=== PATIENT | female | born 1970 | race Caucasian/White ===

== ENCOUNTER → 2016-11-26 | Outpatient (CLI) | payer BC ==
[~2016-11-26] MED LIST: CETI10 PO; FLUT50SP EACH NARE; GREEN VIBRANCE PO; NORE1TAB43 PO; PHENO60 PO; [UNRECOGNIZED DRUG - CODE] PO; [UNRECOGNIZED DRUG - OTHER] PO
[2016-11-26 14:03] LABS: AUTOMATED NEUTROPHIL # 2.9 TH/MM3 (1.8-7.7); BASOPHIL # 0.1 TH/MM3 (0-0.2); EOSINOPHIL % 0.8 % (0.0-4.0); HEMATOCRIT 44.3 % (35.0-46.0); HEMO FLAGS DIFF FINAL; LYMPH % 32.1 % (9.0-44.0); LYMPHOCYTE # 1.6 TH/MM3 (1.0-4.8); MEAN CORPUSCULAR HEMOGLOBIN 29.1 PG (27.0-34.0); MEAN CORPUSCULAR HGB CONC 33.1 % (32.0-36.0); MONO % 8.2 % (0.0-8.0); NEUT % 57.9 % (16.0-70.0); PLATELET COUNT 233 TH/MM3 (150-450); RED BLOOD COUNT 5.04 MIL/MM3 (4.00-5.30); RED CELL DISTRIBUTION WIDTH 13.6 % (11.6-17.2)
[2016-11-26 14:23] LABS: BACTERIA, URINE OCC /hpf; BLOOD, URINE NEG (NEG); COMMENT (UR) CULT NOT INDICATED; CULTURE IF INDICATED CULT NOT INDICATED; GLUCOSE,URINE NEG (NEG); KETONE, URINE NEG (NEG); MUCUS URINE FEW /lpf (OCC); NITRITE,URINE NEG (NEG); PH, URINE 6.5 (5.0-8.5); SQUAMOUS EPITHELIAL CELL URINE 6 /hpf (0-5); TRANSITIONAL EPI CELLS, URINE <1 /hpf; URINE COLOR LIGHT-YELLOW (YELLW/STRAW)
[2016-11-26 14:28] LABS: BETA HCG QUANT LESS THAN 1 MIU/ML (0-5)
--- NOTE | 2016-11-27 23:35 | EKG ---
Date Performed: 11/26/2016 Time Performed: 13:37:07 PTAGE: 45 years EKG: Sinus rhythm NORMAL ECG NO PREVIOUS TRACING DOCTOR: Jose Antonio Perez Interpretating Date/Time 11/27/2016 23:32:34
== END ==
LOC: CPRE 13:14
PROVIDERS: ATTEND Obstetrics & Gynecology
DX: Z01.812 Encounter for preprocedural laboratory examination (principal); D25.9 Leiomyoma of uterus, unspecified; R87.619 Unspecified abnormal cytological findings in specimens from cervix uteri
CPT/HCPCS: 36415; 81001; 84702; 85025; 93005

== ENCOUNTER → 2016-12-02 | Day surgery (SDC) | payer BC ==
--- NOTE | 2016-12-01 21:45 | MH ---
cc: JOSE MO. DATE OF ADMISSION: 12/02/2016 ADMITTING DIAGNOSIS: Menorrhagia with fibroids and atypical glandular cells on Pap smear. HISTORY OF PRESENT ILLNESS 45-year-old single white female, para 3-0-0-3, returned for followup Pap on 11/06/2016 which returned with LESLEY-1 atypical glandular cells and positive high-risk HPV. Colposcopy was performed on 11/18/2016 which revealed benign ECC. Vaginal ultrasound 11/23/2016 showed a uterus about 10.9 cm multiple fibroids, and area of shadowing in the midportion of the endometrium. Ovaries were normal. She is now admitted for hysteroscopy and D&C. PAST MEDICAL HISTORY Sinus surgery. History of seizure. MEDICATIONS: Phenobarbital. Vitamins. ALLERGIES: NONE. TRANSFUSIONS None. OBSTETRICAL HISTORY Three vaginal deliveries. SOCIAL HISTORY She is single. Alcohol, tobacco and drugs are none. PHYSICAL EXAMINATION: Reveals a well-nourished, well-developed white female. Vital signs stable. HEENT: Exam is normal. CHEST: Clear. HEART: Regular rate. BREASTS: The breasts are symmetrical. ABDOMEN: Benign. PELVIC: Normal external genitalia and BUS. Vagina is normal. Cervix normal. Uterus is about 12 weeks' size. Adnexa nonpalpable. ASSESSMENT: As above. PLAN: She is now admitted for hysteroscopy, D&C. While in the office, I explained the procedures, the risks, benefits, complications, and possible need for surgery depending on the findings. The patient would like to proceed. MD SULEMA Hernandez/SULY /9:11 PM /9:26 PM
[~2016-12-02] VITALS: Ht 165.1 cm; Wt 62.0 kg
[~2016-12-02] MED LIST changes: +ACETAMINOPHEN 1000 MG/100 ML VIAL IV SCH; +DO NOT ADM ANY ANTICOAGULANT DRUGS XX PRN; +FAMOTIDINE 20 MG/2 ML VIAL ONE; +INSULIN HUMAN REGULAR 1,000 UNITS/10 ML VIAL SQ PRN; +KETOROLAC TROMETHAMINE 60 MG/2 ML (IM) VIAL IM ONE; +LACTATED RINGER'S 1000 ML IV SCH; +METOCLOPRAMIDE HCL 10 MG/2 ML VIAL IV PRN; +METOPROLOL TARTRATE 25 MG TAB PO PRN; +MIDAZOLAM HCL 2 MG/2 ML VIAL ONE; +ONDANSETRON HCL 4 MG/2 ML VIAL IV PUSH ONE; +PROPOFOL 200 MG/20 ML AMP IV ONE; +SODIUM CHLORID 0.9% 500 ML IV SCH; +ceFAZolin 1,000 MG/NS 100 ML IV SCH; +oxyCODONE/ACETAMINOPHEN 5 MG/325 MG TAB PO PRN
[2016-12-02 13:22] VITALS: BP 113/67; PULSE 65; RESP 20; TEMP 98.1; O2SAT 100
[2016-12-02 16:30] VITALS: BP 112/61; PULSE 65; RESP 16; TEMP 97.9; O2SAT 100
--- NOTE | 2016-12-03 13:39 | MP ---
cc: JOSE MO M.D. DATE OF SURGERY 12/02/2016 PREOPERATIVE DIAGNOSIS Menorrhagia, dysmenorrhea with fibroids, atypical squamous and atypical glandular cells on Pap smear. POSTOPERATIVE DIAGNOSIS Menorrhagia, dysmenorrhea with fibroids, atypical squamous and atypical glandular cells on Pap smear, pathology pending. PROCEDURE Cervical biopsies, hysteroscopy, D&C. ANESTHESIA General ET SURGEON Jose Mo MD ESTIMATED BLOOD LOSS About 15 cc FLUIDS Half liter of crystalloid. OBJECTIVE FINDINGS Following the induction of adequate general endotracheal anesthesia, the patient was prepped and draped supine on the operating table in the dorsolithotomy position in the usual sterile fashion with the bladder being drained via in and out catheterization. Exam under anesthesia revealed a 12 weeks' size uterus, moderate descent. A heavy weighted speculum was placed in the posterior fornix of the vagina. The anterior lip of the cervix grasped with single toothed tenaculum. Cervix and uterus sounded to 10 cm. The cervix was then dilated to #18 Hanks dilator. The hysteroscope was passed into normal cervix and normal endometrium. Endocervical curettings obtained with a small serrated curette and a small sharp curette and polyp forceps were passed to pick pulling machine tender loose tissue and debris. Biopsies taken from the cervix at 6 and 12 o'clock of epithelium. Biopsy sites and tenaculum sites and tenaculum sites sutured with 2-0 chromic. All counts were correct. The patient's legs were taken out of the stirrups. She was is awakened and taken to the recovery room in good condition. MD SULEMA Hernandez/LUPE /3:14 PM /1:30 PM
== END | disposition home or self-care (01) ==
LOC: HSDC 12:30 → EDUNIT# 14:45
PROVIDERS: ATTEND Obstetrics & Gynecology
DX: N72 Inflammatory disease of cervix uteri (principal); N92.0 Excessive and frequent menstruation with regular cycle; N94.6 Dysmenorrhea, unspecified; D25.9 Leiomyoma of uterus, unspecified
CPT/HCPCS: 00952; 58558; 88305; J0131; J0690; J1885; J2250; J2405; J3010; J7120